=== PATIENT | female | born 1950 | race Caucasian/White ===

== ENCOUNTER 2017-05-19 18:37 | Emergency (ER) | payer OTHER ==
[~2017-05-19] VITALS: Ht 157.5 cm; Wt 49.0 kg
== END 2017-05-19 21:36 | disposition home or self-care (01) ==
LOC: ER 18:37
DX: S92.911A Unspecified fracture of right toe(s), initial encounter for closed fracture (principal); W22.8XXA Striking against or struck by other objects, initial encounter; Y93.89 Activity, other specified; Y92.89 Other specified places as the place of occurrence of the external cause; Y99.8 Other external cause status

== ENCOUNTER 2021-09-03 15:23 | Inpatient (IN) | payer OTHER ==
[~2021-09-03] VITALS: Ht 167.6 cm; Wt 59.0 kg
--- NOTE | 2021-09-03 16:16 | NUR ---
SE RECIBE PTE HIPOACTIVA QUIEN NO RESPONDE A ESTIMULOS DE DOLOR,EN SILLON DE ANGEL EN COMPANIA DE FAMILIAR QUIEN INDICA ANTES [facility] PRESENTO DOLOR DE ALIREZA,VOMITOS Y PRESION ARTERIAL.SE UBICA EN KAMILAH CON BARANDAS ELEVADAS,SE REALIZA TRIAGE,EKG Y DXT,SE PRESENTA A DR GRACE.
--- NOTE | 2021-09-03 16:48 | NUR ---
SE INSERTA VALERIO BAJO MEDIDAS ASEPTICAS.
--- NOTE | 2021-09-03 17:43 | NUR ---
SE EXTRAEN MUESTRAS BAJO MEDIDAS ASEPTICAS,SE CANALIZA Y SE COLOCAN FLUIDOS DE MANTENIMIENTO BAJANDO SIN DIFICULTAD,SE NOTIFICA CT PENDIENTE.
--- NOTE | 2021-09-03 20:42 | NUR ---
SE RECIBE PACIENTE AL AREA DE CHEST PAIN. SE COLOCA EN CAMA #16. PACIENTE NO RESPONDE. SE CONECTA A MONITOR CARDIACO CON SATUROMETRO. IVF'S PATENTES BAJANDO .9NSS A POR BRAZO DERECHO ANGIO #18 BONNIE DE EDEMA Y/O ERITEMA Y CON H/L EN MANO IZQ ANGIO #18 TAMBIEN BONNIE DE EDEMA Y/O ERITEMA. VALERIO PATENTE A GRAVEDAD CON ORINA AMARILLO THEA. SE MIDEN Y DOCUMENTAN S/V. SE MONITOREA POR CAMBIOS SIGNFICATIVOS. BARANDAS ELEVADAS POR SOTO SEGURIDAD.
--- NOTE | 2021-09-03 23:41 | NUR ---
2300 SE RECIBE PTE FEMENINA ESTUPOROSA DEL TURNO ANTERIOR, UBICADA EN CAMA #16 DE UNIDAD DE CHESTPAIN; CONECTADA A MONITOR CARDIACO Y OXIMTERIA DE PULSO CONTINUA. SE OBSERVA CON BUEN PATRON RESPIRATORIO PRESENTANDO SATURACION DE O2 MANUAL AL 100%. PTE PRESENTANDO MOVIMIENTOS INVOLUNTARIOS. VENOPUNCION PATENTE X2 RADHA EN MANO R+ Y OTRA EN BRAZO L+ CON TERAPIA DE IVFS 0.9NSS BAJANDO A 80ML/HR. PTE CON ABDOMEN BLANDO Y DEPRESIBLE. SONDA URINARAIA A GRAVEDAD DRENANDO EGRESO DE ORINA COLOR AMARILLO THEA CON APROXIMADAMENTE 75ML/HR. PTE EN CAMA NIVEL MAS BAJO CON BARANDAS ELEVADAS Y CABECERA A 30 GRADOS, FRENOS COLOCADOS POR SEGURIDAD. SE JEANNIE Y REPORTAN S/V. PTE CON DNI Y DNR FIRMADO POR FAMILIARES. PENDIENETE CONSULTA CON MEDICINA INTERNA.
== END 2021-09-22 13:09 | disposition expired | DRG 66 ==
LOC: ER 15:23 → ICUI 09-04 01:49 → ICU-2 09-04 01:49 → ICU 09-08 13:18 → MEDJ 09-15 04:56
PROVIDERS: ADMIT Internal Medicine; ATTEND Internal Medicine
PROC: 02HV33Z Insertion of Infusion Device into Superior Vena Cava, Percutaneous Approach (ICD-10-PCS; 2021-09-10)
PROC: B44HZZZ Ultrasonography of Bilateral Lower Extremity Arteries (ICD-10-PCS; principal; 2021-09-12)
DX: I62.01 Nontraumatic acute subdural hemorrhage (principal); R40.2432 Glasgow coma scale score 3-8, at arrival to emergency department; Z66 Do not resuscitate